=== PATIENT | male | born 1995 | race Caucasian/White ===

== ENCOUNTER 2022-08-07 08:27 | Inpatient (IN) | payer OTHER, SELFPAY ==
[~2022-08-07] VITALS: Ht 185.4 cm; Wt 79.6 kg
[2022-08-07] MEDS ORDERED: TRAZ-252 PO (10:04)
[2022-08-07] MEDS ORDERED: THERTAB52 PO (10:04)
[2022-08-07] MEDS ORDERED: VITA200012 PO (10:04)
[2022-08-07] MEDS ORDERED: LATU20TA PO (10:09)
[2022-08-07] MEDS ORDERED: med rec comment (10:11)
[2022-08-07] MEDS ORDERED: HOME MED LIST COMPLETE! XX SCH (10:15)
[2022-08-07] MEDS ORDERED: MAALOX 30 ML SUSP *UDC PO PRN (14:25)
[2022-08-07] MEDS ORDERED: traZODone 50 MG TAB PO PRN (14:25)
[2022-08-07] MEDS ORDERED: MOM 30ML SUSPENSION UDC PO PRN (14:25)
[2022-08-07] MEDS ORDERED: ACETAMINOPHEN TAB 650MG DOSE (2X325MG) PO PRN (14:25)
[2022-08-07 15:53] VITALS: BP 137/77
[2022-08-07] MEDS ORDERED: LURASIDONE HCL 40MG TAB (LATUDA) PO SCH (18:00)
[2022-08-07] MEDS: NICOTINE POLACRILEX 2 MG GUM PO PRN ×2 (18:03→20:22)
[2022-08-07] MEDS: LURASIDONE 20 MG TAB (LATUDA) PO SCH (18:03)
[2022-08-07] MEDS: traZODone 50 MG TAB PO SCH (20:22)
[2022-08-07] MEDS ORDERED: traZODone 50 MG TAB PO SCH (21:00)
[2022-08-07] MEDS ORDERED: LURASIDONE 20 MG TAB (LATUDA) PO SCH (21:00)
[2022-08-08 06:42] VITALS: BP 122/65
[2022-08-08] MEDS: VITAMIN D 1,000 INTERNATIONAL UNITS TABLET PO SCH (07:34)
[2022-08-08] MEDS ORDERED: INFLUENZA QUADRIVALENT PF VACCINE 0.5ML SYRINGE IM.IMMUN ONE (09:00)
[2022-08-08] MEDS: NICOTINE POLACRILEX 2 MG GUM PO PRN ×2 (09:18→16:51)
[2022-08-08 10:38] LABS: HEMATOCRIT 45.8 % (42.0-52.0); HEMOGLOBIN 14.9 g/dl (13.5-17.5); MEAN CORPUSCULAR HGB CONC 32.5 g/dl (32.0-36.5); MEAN CORPUSCULAR VOLUME 92.2 fl (80.0-96.0); PLATELET COUNT, AUTOMATED 165 10^3/uL (150-450); RED BLOOD COUNT 4.97 10^6/uL (4.30-6.10); WHITE BLOOD COUNT 8.7 10^3/uL (4.0-10.0)
[2022-08-08] MEDS: hydrOXYzine 50 MG TAB PO PRN (10:52)
[2022-08-08 11:11] LABS: HEMOGLOBIN A1c 5.1 %
[2022-08-08 11:15] LABS: ALBUMIN 3.8 GM/DL (3.2-5.2); ALT/SGPT 33 U/L (12-78); BILIRUBIN,TOTAL 0.2 MG/DL (0.2-1.0); BLOOD UREA NITROGEN 10 MG/DL (7-18); CALCIUM LEVEL 9.1 MG/DL (8.5-10.1); CARBON DIOXIDE LEVEL 28 MEQ/L (21-32); CHLORIDE LEVEL 108 MEQ/L (98-107); CHOLESTEROL LEVEL 128 MG/DL (<200); CHOLESTEROL RISK RATIO 3.121 (<5); CREATININE FOR GFR 0.88 MG/DL (0.70-1.30); GLOMERULAR FILTRATION RATE > 60.0 (>60); GLUCOSE, FASTING 90 MG/DL (70-100); HDL CHOLESTEROL 41 MG/DL (>40); LDL CHOLESTEROL 59 MG/DL (<100); NON-HDL-C 87 MG/DL; POTASSIUM SERUM 4.1 MEQ/L (3.5-5.1); SODIUM LEVEL 140 MEQ/L (136-145); TOTAL PROTEIN 6.9 GM/DL (6.4-8.2); TRIGLYCERIDES LEVEL 138 MG/DL (<150)
[2022-08-08 13:03] LABS: GC DNA AMPLIFICATION NEGATIVE (NEGATIVE)
[2022-08-08 16:25] VITALS: BP 135/68
[2022-08-08] MEDS: OLANZapine ORAL DISINTEGRATING TAB 5MG PO PRN (16:51)
[2022-08-08] MEDS: LURASIDONE 20 MG TAB (LATUDA) PO SCH (17:51)
[2022-08-08] MEDS: traZODone 50 MG TAB PO SCH (21:08)
[2022-08-09 06:22] VITALS: BP 118/55
[2022-08-09] MEDS: VITAMIN D 1,000 INTERNATIONAL UNITS TABLET PO SCH (09:46)
[2022-08-09] MEDS: OLANZapine ORAL DISINTEGRATING TAB 5MG PO PRN (11:23)
[2022-08-09 12:14] LABS: HEPATITIS B CORE ANTIBODY IGM NEGATIVE (NEGATIVE); HEPATITIS B SURFACE ANTIGEN NEGATIVE (NEGATIVE); HEPATITIS C VIRUS ABY INDEX < 0.0 INDEX (<0.8); HIV 1&2 SCREEN CENTAUR NEGATIVE (NEGATIVE)
[2022-08-09] MEDS: NICOTINE POLACRILEX 2 MG GUM PO PRN (12:22)
[2022-08-09] MEDS: hydrOXYzine 50 MG TAB PO PRN (16:04)
[2022-08-09] MEDS ORDERED: LORazepam 2 MG TAB PO STA (17:08)
[2022-08-09] MEDS: LURASIDONE 20 MG TAB (LATUDA) PO SCH (18:00)
[2022-08-09 18:16] VITALS: BP 142/82
[2022-08-09] MEDS: traZODone 50 MG TAB PO SCH (21:00)
[2022-08-10 06:07] VITALS: BP 113/58
[2022-08-10] MEDS: VITAMIN D 1,000 INTERNATIONAL UNITS TABLET PO SCH (09:31)
[2022-08-10] MEDS: OLANZapine ORAL DISINTEGRATING TAB 5MG PO PRN ×2 (12:31→18:49)
[2022-08-10] MEDS: NICOTINE POLACRILEX 2 MG GUM PO PRN (13:14)
[2022-08-10] MEDS: hydrOXYzine 50 MG TAB PO PRN (13:14)
[2022-08-10] MEDS: LURASIDONE 20 MG TAB (LATUDA) PO SCH (17:47)
[2022-08-10 18:11] VITALS: BP 150/76
[2022-08-10] MEDS: traZODone 50 MG TAB PO SCH (20:32)
[2022-08-11 06:06] VITALS: BP 113/63
[2022-08-11] MEDS: VITAMIN D 1,000 INTERNATIONAL UNITS TABLET PO SCH (09:22)
[2022-08-11] MEDS: NICOTINE POLACRILEX 2 MG GUM PO PRN (12:23)
[2022-08-11] MEDS: hydrOXYzine 50 MG TAB PO PRN (13:11)
[2022-08-11 17:55] VITALS: BP 127/73
[2022-08-11] MEDS: LURASIDONE 20 MG TAB (LATUDA) PO SCH (18:24)
[2022-08-11] MEDS: traZODone 50 MG TAB PO SCH (21:23)
[2022-08-12 06:02] VITALS: BP 116/59
[2022-08-12] MEDS: VITAMIN D 1,000 INTERNATIONAL UNITS TABLET PO SCH (09:45)
[2022-08-12] MEDS: NICOTINE POLACRILEX 2 MG GUM PO PRN (12:09)
[2022-08-12] MEDS: hydrOXYzine 50 MG TAB PO PRN (15:54)
[2022-08-12] MEDS: LURASIDONE HCL 40MG TAB (LATUDA) PO SCH (17:07)
[2022-08-12 18:15] VITALS: BP 135/86
[2022-08-12] MEDS: traZODone 50 MG TAB PO SCH (20:09)
[2022-08-13 06:36] VITALS: BP 124/58
[2022-08-13] MEDS: VITAMIN D 1,000 INTERNATIONAL UNITS TABLET PO SCH (09:01)
[2022-08-13] MEDS: NICOTINE POLACRILEX 2 MG GUM PO PRN ×2 (11:28→19:29)
[2022-08-13] MEDS: hydrOXYzine 50 MG TAB PO PRN (16:00)
[2022-08-13] MEDS: LACTOBACILLUS ACIDOPHILUS CAP (BACID) PO SCH (17:13)
[2022-08-13] MEDS: LURASIDONE HCL 40MG TAB (LATUDA) PO SCH (17:13)
[2022-08-13 18:03] VITALS: BP 144/79
[2022-08-13] MEDS: BACTRIM 160MG/800MG DS TAB PO SCH (20:52)
[2022-08-13] MEDS: traZODone 50 MG TAB PO SCH (20:52)
[2022-08-14] MEDS: LACTOBACILLUS ACIDOPHILUS CAP (BACID) PO SCH ×2 (08:43→17:16)
[2022-08-14] MEDS: VITAMIN D 1,000 INTERNATIONAL UNITS TABLET PO SCH (08:43)
[2022-08-14] MEDS: BACTRIM 160MG/800MG DS TAB PO SCH ×2 (08:43→20:02)
[2022-08-14] MEDS: NICOTINE POLACRILEX 2 MG GUM PO PRN ×2 (09:20→16:48)
[2022-08-14] MEDS: OLANZapine ORAL DISINTEGRATING TAB 5MG PO PRN (14:33)
[2022-08-14] MEDS: LURASIDONE HCL 40MG TAB (LATUDA) PO SCH (17:16)
[2022-08-14 18:00] VITALS: BP 139/91
[2022-08-14] MEDS: traZODone 50 MG TAB PO SCH (20:02)
[2022-08-15] MEDS: BACTRIM 160MG/800MG DS TAB PO SCH ×2 (09:30→20:51)
[2022-08-15] MEDS: VITAMIN D 1,000 INTERNATIONAL UNITS TABLET PO SCH (09:30)
[2022-08-15] MEDS: LACTOBACILLUS ACIDOPHILUS CAP (BACID) PO SCH ×2 (09:31→17:55)
[2022-08-15] MEDS: LURASIDONE HCL 40MG TAB (LATUDA) PO SCH (17:55)
[2022-08-15] MEDS: NICOTINE POLACRILEX 2 MG GUM PO PRN (17:56)
[2022-08-15 18:37] VITALS: BP 129/74
[2022-08-15] MEDS: traZODone 50 MG TAB PO SCH (20:51)
[2022-08-16] MEDS: BACTRIM 160MG/800MG DS TAB PO SCH ×2 (09:11→20:48)
[2022-08-16] MEDS: LACTOBACILLUS ACIDOPHILUS CAP (BACID) PO SCH ×2 (09:11→18:00)
[2022-08-16] MEDS: VITAMIN D 1,000 INTERNATIONAL UNITS TABLET PO SCH (09:11)
[2022-08-16] MEDS: NICOTINE POLACRILEX 2 MG GUM PO PRN ×2 (09:13→12:33)
[2022-08-16 16:30] VITALS: BP 111/64
[2022-08-16] MEDS: LURASIDONE HCL 40MG TAB (LATUDA) PO SCH (18:00)
[2022-08-16] MEDS: traZODone 50 MG TAB PO SCH (20:48)
[2022-08-17 06:21] VITALS: BP 123/58
[2022-08-17] MEDS: VITAMIN D 1,000 INTERNATIONAL UNITS TABLET PO SCH (07:32)
[2022-08-17] MEDS: LACTOBACILLUS ACIDOPHILUS CAP (BACID) PO SCH (07:32)
[2022-08-17] MEDS: BACTRIM 160MG/800MG DS TAB PO SCH (07:32)
[2022-08-17] MEDS ORDERED: TRAZ-252 PO (07:57)
[2022-08-17] MEDS ORDERED: VITA200012 PO (07:57)
[2022-08-17] MEDS ORDERED: LATU40TA2 PO (07:57)
== END 2022-08-17 08:13 | DRG 756 ==
LOC: M ED 08:27 → M ED INP 14:22 → M ED 15:11 → M PSY 15:47
PROVIDERS: ADMIT Psychiatry & Neurology Psychiatry; ATTEND Psychiatry & Neurology Psychiatry
DX: F41.9 Anxiety disorder, unspecified (principal); F15.151 Other stimulant abuse with stimulant-induced psychotic disorder with hallucinations; R45.851 Suicidal ideations; F43.9 Reaction to severe stress, unspecified; F60.3 Borderline personality disorder; H60.01 Abscess of right external ear; F17.200 Nicotine dependence, unspecified, uncomplicated; F16.10 Hallucinogen abuse, uncomplicated; Z59.00 Homelessness unspecified; Z81.1 Family history of alcohol abuse and dependence; Z81.8 Family history of other mental and behavioral disorders; Z62.810 Personal history of physical and sexual abuse in childhood; Z79.899 Other long term (current) drug therapy; Z88.0 Allergy status to penicillin; Z65.3 Problems related to other legal circumstances; Z72.51 High risk heterosexual behavior; Z59.02 Unsheltered homelessness

== ENCOUNTER → 2022-12-22 | Outpatient (CLI) | payer OTHER ==
[~2022-12-22] MED LIST: LATU20TA PO; LATU40TA2 PO; THERTAB52 PO; TRAZ-252 PO; VITA200012 PO; med rec comment
[2022-12-22 15:09] LABS: BASO % 0.2 % (0.0-1.0); EOS # 0.1 10^3/uL (0.0-0.5); EOS % 0.5 % (0.0-3.0); HEMATOCRIT 48.2 % (42.0-52.0); HEMOGLOBIN 16.3 g/dl (13.5-17.5); LYMPH # 2.1 10^3/uL (1.5-5.0); MEAN CORPUSCULAR HEMOGLOBIN 29.7 pg (27.0-33.0); MEAN CORPUSCULAR HGB CONC 33.8 g/dl (32.0-36.5); MEAN CORPUSCULAR VOLUME 87.8 fl (80.0-96.0); MONO # 0.7 10^3/uL (0.0-0.8); NEUTROPHILS # 6.6 10^3/uL (1.5-8.5); PLATELET COUNT, AUTOMATED 160 10^3/uL (150-450); RED BLOOD COUNT 5.49 10^6/uL (4.30-6.10); WHITE BLOOD COUNT 9.5 10^3/uL (4.0-10.0)
[2022-12-22 15:35] LABS: ALBUMIN 4.1 G/DL (3.2-5.2); BLOOD UREA NITROGEN 15 MG/DL (9-23); CALCIUM LEVEL 8.7 MG/DL (8.5-10.1); CARBON DIOXIDE LEVEL 30 MMOL/L (20-31); CHLORIDE LEVEL 104 MMOL/L (98-107); CREATININE FOR GFR 1.02 MG/DL (0.70-1.30); GLOMERULAR FILTRATION RATE > 60.0 (>60); GLUCOSE, FASTING 87 MG/DL (60-100); PHOSPHORUS LEVEL 2.4 MG/DL (2.5-4.9); SODIUM LEVEL 141 MMOL/L (136-145)
[2022-12-22 15:40] LABS: THYROID STIMULATING HORMONE 0.644 uIU/ML (0.55-4.78)
[2022-12-22 15:41] LABS: TOTAL 25(OH) VITAMIN D 33.3 NG/ML (20.0-100.0)
[2022-12-22 15:47] LABS: APPEARANCE, URINE CLEAR (CLEAR); BACTERIA, URINE AUTO NEGATIVE (NEGATIVE); BILIRUBIN, URINE AUTO NEGATIVE (NEGATIVE); BLOOD, URINE BLOOD NEGATIVE (NEGATIVE); COLOR, URINE YELLOW (YELLOW); GLUCOSE, URINE (UA) AUTO NEGATIVE (NEGATIVE); KETONE, URINE AUTO TRACE mg/dL (NEGATIVE); LEUKOCYTE ESTERASE, URINE AUTO NEGATIVE (NEGATIVE); MUCUS, URINE SMALL (NEGATIVE); NITRITE, URINE AUTO NEGATIVE (NEGATIVE); PROTEIN, URINE AUTO NEGATIVE (NEGATIVE); RBC, URINE AUTO 2 /HPF (0-3); SPECIFIC GRAVITY URINE AUTO 1.023 (1.002-1.035); SQUAMOUS EPITHELIAL CELL UR AU 0 /HPF (0-6); UROBILINOGEN, URINE AUTO 0.2 mg/dL (0.0-2.0); WBC, URINE AUTO 1 /HPF (0-3)
[2022-12-22 15:52] LABS: HEPATITIS B SURFACE ANTIGEN NEGATIVE (NEGATIVE)
[2022-12-22 16:14] LABS: HEPATITIS B CORE ANTIBODY IGM NEGATIVE (NEGATIVE)
[2022-12-23 23:08] LABS: TESTOSTERONE FREE (DIRECT) 30.8 pg/mL (9.3-26.5)
== END ==
LOC: M LAB 12:56
PROVIDERS: ATTEND Physician Assistant
DX: Z02.2 Encounter for examination for admission to residential institution (principal); E55.9 Vitamin D deficiency, unspecified; F52.21 Male erectile disorder; R53.83 Other fatigue

== ENCOUNTER 2022-12-25 17:05 | Emergency (ER) | payer OTHER ==
[~2022-12-25] VITALS: Ht 185.4 cm; Wt 97.7 kg
[2022-12-25 18:55] VITALS: BP 135/79
== END 2022-12-25 18:57 | disposition home or self-care (01) ==
LOC: M ED 17:05
DX: M25.561 Pain in right knee (principal); F17.290 Nicotine dependence, other tobacco product, uncomplicated; Z88.0 Allergy status to penicillin; Z88.1 Allergy status to other antibiotic agents; Z79.899 Other long term (current) drug therapy

== ENCOUNTER → 2023-05-17 | Outpatient (CLI) | payer OTHER | LOC: M PLAIMG 06:38 | PROVIDERS: ATTEND Orthopaedic Surgery | DX: M23.51 Chronic instability of knee, right knee (principal) ==